=== PATIENT | female | born 1975 | race Caucasian/White ===

== ENCOUNTER 2016-07-28 16:55 | Emergency (ER) | payer SELFPAY ==
[~2016-07-28 16:55] MED LIST: ALBUTEROL 0.5ML INH; ALBUTEROL17 GM INH; ATROVENT NEB; BENADRYL25 M1 PO; COMBIVENT RESPIM4 GM IH; COMBIVENT U/D3 M2 INH; DIAZEPAM2 MG PO; ESTROGEN PO; HYDROCODON-ACE1 EAC9 PO; LEVAQUIN750 M1 PO; PREDNISONE10 MG/DOSE PO; PULMICORT0.5 MG/2 M IH; SYMBICORT INH; SYNTHROID75 MCG PO; TUSSIONEX PENN473 ML PO
== END 2016-07-28 17:30 | disposition home or self-care (01) ==
LOC: CFTX 16:55 → CED 16:55 → CFTX 17:29
DX: G89.29 Other chronic pain (principal); M54.5 Low back pain; J44.9 Chronic obstructive pulmonary disease, unspecified; F41.9 Anxiety disorder, unspecified; F17.210 Nicotine dependence, cigarettes, uncomplicated; Z88.1 Allergy status to other antibiotic agents; Z88.8 Allergy status to other drugs, medicaments and biological substances
CPT/HCPCS: 96372; 99283; J1885

== ENCOUNTER 2016-11-05 05:14 | Emergency (ER) | payer SELFPAY ==
[~2016-11-05] VITALS: Ht 167.6 cm; Wt 117.9 kg
--- NOTE | ~2016-11-05 | EKG ---
PATIENT: WILFRED TAVERA UNIT #: [id number] Ventricular Rate: 80 BPM Atrial Rate: 80 BPM P-R Interval: 152 ms QRS Duration: 90 ms Q-T Interval: 406 ms QTC Calculation(Bezet): 468 ms P [place]: 48 degrees Calculated R [place]: 47 degrees Calculated T [place]: 51 degrees Diagnosis Line: Normal sinus rhythm with sinus arrhythmia Diagnosis Line: Low voltage QRS Diagnosis Line: Borderline ECG Diagnosis Line: When compared with ECG of 09-MAR-2016 02:35, Diagnosis Line: No significant change was found Diagnosis Line: Confirmed by SOURAV ORTEGA MD ([id number]) on Diagnosis Line: 11/05/2016 11:38:07 AM INTERPRETING MD: JORDAN PADRON
--- NOTE | ~2016-11-05 | CR63 ---
[facility] A Service of [facility] & [facility] RADIOLOGY TEXT RESULTS PATIENT: WILFRED TAVERA LOCATION: [facility] : 73 UNIT #: [id number] AGE: [address]: Jai Tobias MD SEX: F ORDER DR: [id number] [facility] [address] [place], [place] [address] [id number] E MR#: [id number] Acc #: [id number] NAME: WILFRED TAVERA : 1975 SEX: F STUDY DATE/TIME: 11/05/2016 6:19 UNIT: [facility] ROOM: STUDY DESCRIPTION: CR Chest 2 View Attending Physician: Jai Tobias M.D. Ordering Physician: Ed Doctor [id number] [facility] Primary Care Physician: [facility] MEDICAL IMAGING REPORT This report is preliminary unless electronic signature is present EXAM PA and lateral chest 2 views 11/05/2016 COMPARISON 04/11/2016. CLINICAL HISTORY Short of air, cough and wheezing for 1 week. FINDINGS Mild interstitial prominence probably secondary to submaximal inspiration. Heart size upper limits normal again likely exaggerated by inspiratory effort. No consolidation, effusion, pneumothorax or other acute abnormality. Minimal old granulomatous disease. Dictated by... Leandro Wheeler M.D. THIS IS AN ELECTRONICALLY VERIFIED REPORT Leandro Wheeler M.D. at 11/05/2016 3:58 PM CARLOS/marcos TD: 11/05/2016 10:34 JOB #: [id number] MEDICAL IMAGING REPORT Page 1 of 1 COPY
[2016-11-05 06:22] LABS: BASOPHIL% 0.4 % (0-2.5); DIFF IND NO; EOSINOPHIL# 0.3 X10e3 (0-0.7); EOSINOPHIL% 3.5 % (0.0-7.0); HEMATOCRIT 38.8 % (35.0-45.0); HEMOGLOBIN 13.6 gm/dL (12.0-16.0); LYMPHOCYTE# 2.6 X10e3 (1.0-3.5); LYMPHOCYTE% 29.3 % (17.0-45.0); MEAN CELL VOLUME 89.5 FL (83-96); MEAN CORPUSCULAR HEMOGLOBIN 31.3 PG (28-34); MEAN PLATELET VOLUME 8.1 FL (6.5-11.5); MONOCYTE# 0.4 X10e3 (0-1.0); NEUTROPHIL# 5.4 X10e3 (1.5-7.1); NEUTROPHIL% 61.8 % (40-75); PLATELET COUNT 201 X10e3 (140-420); RED BLOOD COUNT 4.33 X10e (3.90-5.30); WHITE BLOOD COUNT 8.8 X10e3 (4.0-10.5)
[2016-11-05 07:21] LABS: ALBUMIN SERUM 4.1 g/dL (3.5-5.0); ALKALINE PHOSPHATASE 95 U/L (32-92); ALT (SGPT) 14 U/L (10-40); AST (SGOT) 15 U/L (10-42); BILIRUBIN,TOTAL 0.3 mg/dL (0.2-2.0); BLOOD UREA NITROGEN 15 mg/dL (9-23); BUN/CREATININE RATIO 18.75; CARBON DIOXIDE 25 mmol/L (22-31); CHLORIDE 107 mmol/L (100-111); CREATININE SERUM 0.8 mg/dL (0.6-1.4); GLUCOSE FASTING 110 mg/dL (70-110); POTASSIUM 3.8 mmol/L (3.5-5.1); PROTEIN TOTAL SERUM 7.1 g/dL (6.0-8.3); SODIUM 137 mmol/L (135-145)
[2016-11-05 07:23] LABS: BILIRUBIN, DIRECT <0.1 mg/dL (0.0-0.2); BILIRUBIN,INDIRECT 0.2 mg/dL (0.0-0.9)
== END 2016-11-05 09:04 | disposition home or self-care (01) ==
LOC: CED 05:14
PROVIDERS: Nurse Practitioner Family
DX: J44.9 Chronic obstructive pulmonary disease, unspecified (principal); J45.909 Unspecified asthma, uncomplicated; F41.9 Anxiety disorder, unspecified; E07.9 Disorder of thyroid, unspecified; F17.210 Nicotine dependence, cigarettes, uncomplicated; Z90.49 Acquired absence of other specified parts of digestive tract; Z90.710 Acquired absence of both cervix and uterus; Z79.899 Other long term (current) drug therapy; Z88.0 Allergy status to penicillin; Z88.1 Allergy status to other antibiotic agents; Z88.8 Allergy status to other drugs, medicaments and biological substances
CPT/HCPCS: 36415; 71020; 80048; 80076; 85025; 87040; 93005; 94640; 99285; J2930